=== PATIENT | male | born 1950 | race Caucasian/White ===

== ENCOUNTER 2024-04-21 10:35 | Emergency (ER) | payer BC ==
[2024-04-21 11:00] VITALS: BP 142/76; PULSE 79; RESP 18; TEMP 98.1; BMI 28.3
[2024-04-21] MEDS ORDERED: ACETAMINOPHEN 325 MG TABLET (FP) ONE (11:38)
[2024-04-21] MEDS: ACETAMINOPHEN 500 MG TABLET (FP) PO ONE (11:49)
== END 2024-04-21 14:48 | disposition home or self-care (01) ==
LOC: FER 10:35
DX: M25.512 Pain in left shoulder (principal); M25.511 Pain in right shoulder; W01.0XXA Fall on same level from slipping, tripping and stumbling without subsequent striking against object, initial encounter
CPT/HCPCS: 70450-TC; 72125-TC; 72170-TC-FY; 99284-25